=== PATIENT | female | born 1930 | race Caucasian/White ===

== ENCOUNTER → 2017-04-10 | Outpatient (CLI) | payer MEDICARE, OTHER ==
[~2017-04-10] MED LIST: LISINOPRIL/HCTZ1 TA3 PO; LORTAB 5/500 501 TAB PO; PRAVASTATIN20 MG PO
[2017-04-10 09:33] LABS: BUN 19 mg/dL (7-18)
[2017-04-10 09:34] LABS: GFR (ESTIMATED) 118 ML/MIN (59-)
--- NOTE | 2017-04-11 12:23 | RADIOLOGY REPORT PS360 ---
CT CHEST W/O CONTRAST COMPARISON: CT scan the chest 01/05/2016 HISTORY: Known advanced COPD, following pulmonary nodules TECHNIQUE: Multiaxial scans obtained from the thoracic inlet the hemidiaphragms and were performed without IV contrast. Sagittal and coronal reformats were evaluated as well. FINDINGS: Rather severe emphysematous changes are again noted with hyperexpansion of the lung martinez and depression and flattening of the hemidiaphragms. Centrilobular emphysematous changes are predominant. The irregular opacity in the posterior segment of the right upper lobe is somewhat less prominent on today's study than noted on the previous study December 2015. The 4 mm nodule apical posterior segment left upper lobe is stable and unchanged in size. There is a 3 mm noncalcified nodule right upper lobe stable and unchanged from previous exam. There is a stable left perihilar noncalcified nodule which actually may be slightly smaller than the previous exam. There are no new pulmonary nodules seen. There is no acute infiltrate and is no pleural fluid. There is prominent arteriosclerotic calcification of the aortic arch. Overall cardiac size is normal. Again noted is prominent kyphotic curvature of the thoracic spine with multilevel degenerative changes but there is no compression fracture. IMPRESSION: Advanced centrilobular emphysema basically stable and unchanged from previous exam with stable and/or slightly less prominent bilateral noncalcified pulmonary nodules with no new nodules seen in the interval. Consider follow-up CT scan in approximately 1 year.
--- NOTE | 2017-04-11 13:36 | RADIOLOGY REPORT PS360 ---
BONE DENSITOMETRY(HIP:LT SPINE COMPARISON: None HISTORY: Smoking history, postmenopausal TECHNIQUE: DEXA scanning of the lumbar spine and bilateral hip FINDINGS: The average BMD lumbar spine L1-L4 is 0.579 g for centimeter squared and the T score is -5.0 area the total BMD left hip is 0.535 g/sq cm with T score -3.8. The left femoral neck is 0.572 g centimeters square the T score -3.4. 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
== END ==
LOC: RAD 09:15
PROVIDERS: Family Medicine
DX: Z13.820 Encounter for screening for osteoporosis (principal); Z12.31 Encounter for screening mammogram for malignant neoplasm of breast; Z78.0 Asymptomatic menopausal state; R91.1 Solitary pulmonary nodule
CPT/HCPCS: G0202